=== PATIENT | female | born 1950 | race Caucasian/White ===

== ENCOUNTER 2016-10-01 08:37 | Day surgery (SDC) | payer BC ==
[2016-10-01] MEDS ORDERED: LIDOCAINE 2% MDV (20MG/ML) 20ML VIAL IV ONE (14:00)
[2016-10-01] MEDS ORDERED: PROPOFOL 10 MG/ML VIAL IV ONE (14:00)
[2016-10-01] MEDS ORDERED: MIDAZOLAM HCL 2MG/2ML VIAL IV ONE (14:00)
--- NOTE | 2016-10-03 11:18 | Operative Note ---
DATE OF SURGERY: 10/01/2016. REFERRING PHYSICIAN: Candace Brooks D.O. PROCEDURE: Colonoscopy to the cecum with cold biopsy forceps polypectomy times three. INDICATION: Prior history of adenomatous polyps. The patient also has a strong family history of colon cancer in her father and her grandmother. ANESTHESIA: Intravenous sedation was administered by the Department of Anesthesiology and included Diprivan titrated to effect. PROCEDURE: Following informed consent from this alert individual, including a discussion of the risks and benefits of the procedure and an opportunity for the patient to ask questions, the patient was in the left lateral decubitus position. A digital rectal exam was performed. No abnormalities were noted. Following this, the Olympus PCF-180 video colonoscope was inserted into the rectum without resistance. The rectal mucosa has a normal appearance with normal folds and distensibility. The colonoscope was advanced up through the colon to the level of the cecum without much difficulty. Throughout the bowel, the mucosa appeared normal, the folds were normal and the bowel was fairly well distensible. Scattered diverticula were noted in the sigmoid colon. The cecum was well defined by noting the appendiceal orifice and ileocecal valve. Retroflexion in the cecum was unremarkable. The colon preparation was good. From the base of the cecum, the colonoscope was then withdrawn. Again, diverticulosis was noted in the sigmoid colon. There were also three diminutive 3.0 mm polyps noted in the descending colon, sigmoid colon, and rectum. Each was removed with application of cold biopsy forceps. Retroflexion in the rectum was endoscopically normal. The endoscope was straightened and withdrawn. The patient tolerated the procedure well and was returned to the recovery area in stable condition. IMPRESSION: 1. Three diminutive 3.0 mm polyps removed from the descending colon, sigmoid colon, and rectum, each with biopsy forceps. 2. Sigmoid diverticulosis. RECOMMENDATIONS: The patient was advised to have a recheck colonoscopy in three years' time for polyp surveillance and family history of colon cancer. Follow up will also be with Dr. Candace Brooks. ARJUN MYERS D.O. Date Time cc: Nate Baldwin
== END 2016-10-01 10:28 | disposition home or self-care (01) ==
LOC: HOP 08:37
PROVIDERS: ATTEND Internal Medicine Gastroenterology
DX: Z86.010 Personal history of colon polyps (principal); D12.4 Benign neoplasm of descending colon; D12.7 Benign neoplasm of rectosigmoid junction; D12.5 Benign neoplasm of sigmoid colon; K57.30 Diverticulosis of large intestine without perforation or abscess without bleeding; I10 Essential (primary) hypertension; E78.00 Pure hypercholesterolemia, unspecified; E03.9 Hypothyroidism, unspecified

== ENCOUNTER 2019-05-20 15:09 | Emergency (ER) | payer MEDICARE, BC ==
--- NOTE | 2019-05-20 15:42 | Emergency Department Record ---
History of Present Illness - General Chief Complaint: Abdominal Pain Stated Complaint: ABD PAIN Time Seen by Provider: 05/20/19 15:25 Source: Patient, RN notes reviewed Mode of Arrival: Wheelchair - History of Present Illness Initial Comments: patient has left lower quad pain apr 21 and [facility] and given levaquin and flagyl and was better and still had a twing of pain and started to get worse a few days ago and she went [facility] and [facility] sent her to the ED today. No vomiting and no diarrhea , no dysuria, PSH Hysterectomy, History of diverticulitis and GI Dr is Dr Trotter . Primary is Dr Perdomo in [place] Onset/Timin -: Month(s) Location: LLQ Severity: Moderate Severity scale (1-10): 8 Quality: Sharp Consistency: Intermittent Improves With: Rest Worsens With: Movement Associated Symptoms: Denies other symptoms - Related Data Home Medications Medication Instructions Recorded Confirmed Last Taken Celecoxib 200 mg PO DAILY 05/20/19 05/20/19 05/20/19 Hydroxychloroquine Sulfate 200 mg PO DAILY 05/20/19 05/20/19 05/20/19 [Plaquenil] Previous Rx's Medication Instructions Recorded Ciprofloxacin HCl [Cipro] 500 mg PO Q12HR #20 tablet 05/20/19 Dicyclomine HCl [Bentyl] 10 mg PO Q8H #15 cap 05/20/19 Metronidazole [Flagyl] 500 mg PO Q8H #30 tablet 05/20/19 Allergies Allergy/AdvReac Type Severity Reaction Status Date / Time No Known Drug Allergies Allergy Verified 05/20/19 15:16 Travel Screening - Travel/Exposure Within Last 30 Days Have you traveled within the last 30 days?: No - Travel/Exposure Within Last Year Have you traveled outside the [place] in the last year?: No - Additonal Travel Details Have you been exposed to anyone with a communicable illness?: No - Travel Symptoms Symptom Screening: None Past Medical History - SOCIAL HISTORY Smoking Status: Former smoker Alcohol Use: None Drug Use: Occasional Drug Use Detail:: Marijuana - RESPIRATORY Hx Respiratory Disorders: Yes Hx Asthma: Yes (very mild & allergy related) Hx Sleep Apnea: Yes Hx of CPAP: No Comment:: dry cough - CARDIOVASCULAR Hx Cardio Disorders: Yes Hx Hypertension: Yes Hx Palpitations: Yes ("a few years ago" 24hr halter maykel, stress, echo neg) Comment:: high cholesterol - NEURO Hx Neuro Disorders: No - GI Hx GI Disorders: Yes Hx Reflux: Yes Hx Liver Disease: Yes (Nonalchoholic fatty liver disease) Hx of Polyps: Yes Comment:: constipation - Hx Genitourinary Disorders: No Hx Bladder Problem: ("urgency & frequency") - ENDOCRINE Hx Endocrine Disorders: Yes Hx Thyroid Disease: Yes - MUSCULOSKELETAL Hx Musculoskeletal Disorders: Yes Hx Arthritis: Yes Hx Fibromyalgia: Yes - PSYCH Hx Psych Problems: No - HEMATOLOGY/ONCOLOGY Hx Hematology/Oncology Disorders: No Family Medical History Any Significant Family History?: Yes Hx Cancer: Father, Mother, Grandparents *Cancer Comment: colon, NHL, leukemia Hx Dementia: Grandparents Hx Diabetes: Father Hx Heart Disease: Grandparents *Heart Comment: CHF, [place] Hx Resp Disorders: Father *Resp Comment: COPD Course Vital Signs 05/20/19 15:22 Temperature 98.3 F Pulse Rate 87 Respiratory 18 Rate Blood Pressure 140/103 Pulse Ox 95 - Reevaluation(s) Reevaluation #1: talked about inpatient and outpatient therapy and she wants outpatient therapy and I told her what things to look for if it is worse and to return to the eD. More pain ,fever ,vomiting 05/20/19 18:39 Medical Decision Making - Lab Data Result diagrams: 05/20/19 16:15 05/20/19 16:15 Disposition Clinical Impression: Diverticulitis Disposition: Home, Self-Care Condition: (1) Good Instructions: Diverticulitis (ED) Additional Instructions: clear liquids today low fiber diet tomorrow Prescriptions: Ciprofloxacin HCl [Cipro] 500 mg PO Q12HR #20 tablet Dicyclomine HCl [Bentyl] 10 mg PO Q8H #15 cap Metronidazole [Flagyl] 500 mg PO Q8H #30 tablet Forms: Patient Portal Access Time of Disposition: 18:41 Quality - Quality Measures Quality Measures: N/A - Blood Pressure Screening Does Patient Have Any of the Following: No Blood Pressure Classification: Hypertensive Reading Systolic Measurement: 140 Diastolic Measurement: 103 Screening for High Blood Pressure: < Pre-Hypertensive BP, F/U Documented > [G8950] Pre-Hypertensive Follow-up Interventions: Referral to alternative/primary care provider.
[2019-05-20] MEDS ORDERED: 0.9 % SODIUM CHLORIDE 1000ML 1,000 ML IV ONE (15:44)
[2019-05-20 15:51] LABS: URINE APPEARANCE SL CLOUDY; URINE BILIRUBIN SMALL (NEGATIVE); URINE BLOOD NEGATIVE (NEGATIVE); URINE COLOR ORANGE; URINE GLUCOSE (UA) NEGATIVE (NEGATIVE); URINE KETONE NEGATIVE (NEGATIVE); URINE LEUKOCYTE ESTERASE NEGATIVE (NEGATIVE); URINE NITRITE NEGATIVE (NEGATIVE); URINE PROTEIN TRACE (NEGATIVE); URINE UROBILINOGEN 0.2 E.U./dL (0.20 - 1.00)
[2019-05-20 16:37] LABS: ABSOLUTE NEUTROPHIL COUNT 5.51; BASO % 0.4 % (0-6); EOS % 2.9 % (0-6); HEMATOCRIT 48.3 % (35.0-47.0); HEMOGLOBIN 14.9 gm/dl (11.6-16.0); LYMPH % 15.9 % (16-45); MEAN CELL VOLUME 85.3 fl (81-97); MEAN CORPUSCULAR HEMOGLOBIN 26.3 pg (27-33); MEAN CORPUSCULAR HGB CONC 30.8 g/dl (32-36); MEAN PLATELET VOLUME 10.9 fl (7.4-10.4); MONO % 10.8 % (0-9); PLATELET COUNT 248 K/uL (130-400); RED BLOOD COUNT 5.66 M/uL (3.80-5.40); RED CELL DISTRIBUTION WIDTH 18.6 % (11.5-14.5); WHITE BLOOD COUNT W/O DIFF 7.9 K/uL (4.2-12.2)
[2019-05-20 16:49] LABS: BLOOD UREA NITROGEN 11 mg/dL (8-23)
[2019-05-20 16:50] LABS: CREATININE 0.5 mg/dL (0.5-0.9); EST GLOMERULAR FILTRATION RATE > 60 mL/min; LIPASE 21 U/L (13-60); TOTAL PROTEIN 7.1 g/dL (6.6-8.7)
[2019-05-20 16:52] LABS: GLUCOSE,RANDOM 93 mg/dL (74-109)
[2019-05-20 16:55] LABS: ALBUMIN 4.2 g/dL (4.0-5.0); ALKALINE PHOSPHATASE 74 U/L (35-104); ALT/SGPT 16 U/L (<33); AST/SGOT 20 U/L (10.0-35.0)
[2019-05-20 16:56] LABS: BILIRUBIN,DIRECT < 0.2 mg/dL (0-0.3)
[2019-05-20] MEDS ORDERED: CIPROFLOXACIN HCL 500 MG TABLET PO ONE (18:34)
[2019-05-20] MEDS ORDERED: METRONIDAZOLE 250 MG TABLET PO ONE (18:34)
[2019-05-20] MEDS ORDERED: DICYCLOMINE HCL 10 MG CAPSULE PO ONE (18:37)
--- NOTE | 2019-05-22 13:54 | CT SCAN REPORT ---
EXAM: CT OF THE ABDOMEN AND PELVIS WITHOUT CONTRAST HISTORY: LEFT LOWER QUADRANT PAIN. TECHNIQUE: Standard CT imaging of the abdomen and pelvis was obtained without contrast. Comparison: 07/07/10. FINDINGS: The lung bases are clear. The liver is unremarkable. Large calcified gallstone. No pericholecystic edema. No peripancreatic fat stranding. There is a diverticulum of the third portion of the duodenum. The spleen is unremarkable. The adrenal glands are normal. There is a tiny 1 mm calcification in the left kidney. No hydronephrosis. A tiny hypodense lesion in the right kidney is too small to characterize, but likely a cyst. There is a focally inflamed diverticulum of the proximal sigmoid colon resulting in focal colonic wall thickening and pericolonic fat stranding consistent with acute diverticulitis. No definite free fluid, though evaluation for abscess is limited without intravenous contrast. No free air is identified. No small bowel dilatation. The bladder is unremarkable. The appendix is normal. There is a fat containing supraumbilical ventral wall hernia. There is a single retroperitoneal lymph node that is upper limits of normal measuring 10 mm in short axis diameter. No destructive osseous lesion is identified. IMPRESSION: ACUTE SIGMOID DIVERTICULITIS. JOB NUMBER: [id number] [facility]
== END 2019-05-20 18:58 | disposition home or self-care (01) ==
LOC: ER 15:09
DX: K57.92 Diverticulitis of intestine, part unspecified, without perforation or abscess without bleeding (principal); I10 Essential (primary) hypertension
CPT/HCPCS: 74176; 80048; 80076; 81003; 83690; 85025; 99284